=== PATIENT | female | born 1965 | race Caucasian/White ===

== ENCOUNTER → 2016-07-21 | Outpatient (CLI) | payer BC ==
[~2016-07-21] MED LIST: ACET-1256 PO; BCPILLS PO
== END | disposition home or self-care (01) ==
LOC: C.PAPS 07:56
PROVIDERS: ATTEND Physician Assistant
DX: Z01.419 Encounter for gynecological examination (general) (routine) without abnormal findings (principal)

== ENCOUNTER → 2017-05-24 | Outpatient (CLI) | payer BC, OTHER | END | disposition home or self-care (01) | LOC: C.RDSM 13:41 | PROVIDERS: ATTEND Family Medicine Sports Medicine | DX: M79.675 Pain in left toe(s) (principal) ==

== ENCOUNTER → 2017-06-28 | Outpatient (CLI) | payer OTHER | END | disposition home or self-care (01) | LOC: C.RDSM 16:20 | PROVIDERS: ATTEND Family Medicine Sports Medicine | DX: M54.5 Low back pain (principal) ==

== ENCOUNTER → 2017-09-22 | Outpatient (CLI) | payer OTHER ==
[2017-09-22 17:54] LABS: BASO % 1.1 %; BASO ABS # 0.07 K/uL (0-0.2); EOS % 2.6 %; EOS ABS # 0.17 K/uL (0-0.5); HEMATOCRIT 34.5 % (37-47); HEMOGLOBIN 11.6 g/dL (12.0-16.0); IG# 0.02 K/uL (0.00-0.02); LYMPH % 37.7 %; LYMPH ABS # 2.46 K/uL (1.2-3.4); MEAN CELL VOLUME 96.1 fL (80-100); MEAN CORPUSCULAR HEMOGLOBIN 32.3 pg (25-34); MEAN CORPUSCULAR HGB CONC 33.6 g/dl (32-36); MEAN PLATELET VOLUME 9.8 fL (7.4-10.4); MONO % 7.2 %; MONO ABS # 0.47 K/uL (0.11-0.59); NEUT % 51.1 %; NEUT ABS # 3.34 K/uL (1.4-6.5); PLATELET COUNT 313 K/uL (130-400); RED CELL DISTRIBUTION WIDTH CV 12.2 % (11.5-14.5); RED CELL DISTRIBUTION WIDTH SD 43.1 fL (36.4-46.3); WHITE BLOOD COUNT 6.53 K/uL (4.8-10.8)
[2017-09-22 18:49] LABS: ALBUMIN 3.4 gm/dl (3.4-5.0); ALKALINE PHOSPHATASE 65 U/L (45-117); ALT/SGPT 20 U/L (12-78); AST/SGOT 19 U/L (15-37); BLOOD UREA NITROGEN 10 mg/dl (7-18); CALCIUM 9.3 mg/dl (8.5-10.1); CARBON DIOXIDE 29 mmol/L (21-32); CREATININE 0.66 mg/dl (0.60-1.20); GLUCOSE 84 mg/dl (70-99); POTASSIUM 3.7 mmol/L (3.5-5.1); SODIUM 137 mmol/L (136-145); TOTAL PROTEIN 7.7 gm/dl (6.4-8.2)
--- NOTE | 2017-09-22 19:09 | DIAGNOSTIC IMAGING REPORT ---
ABDOMEN AND PELVIS CT WITH ORAL CONTRAST CT DOSE: 255.04 mGy.cm HISTORY: Generalized abdominal pain. TECHNIQUE: Multiaxial CT images of the abdomen and pelvis were performed following the use of oral contrast. A dose lowering technique was utilized adhering to the principles of ALARA. COMPARISON STUDY: None. FINDINGS: There is a 4 mm indeterminate pulmonary nodule within the left lower lobe on image 31. No pneumoperitoneum. No pneumatosis. No fractures within the visualized osseous structures. There is an 8 mm hypodense lesion within the right hepatic lobe. This is incompletely characterize on this noncontrast study but favors a cyst. The unenhanced gallbladder, spleen, adrenal glands, and kidneys are unremarkable. No renal stones. No hydronephrosis. 1 cm calcification at the splenic tail. No retroperitoneal lymphadenopathy. There is a duplicated IVC. The bladder, uterus, bilateral adnexa are unremarkable. Normal appendix. No cervical bowel obstruction. Focal thickening within the mid sigmoid colon with pericolonic fat stranding. There are few diverticula at this location. Therefore, this is consistent with acute diverticulitis. No perforation or abscess identified at this time. IMPRESSION: 1. Acute sigmoid diverticulitis. No perforation or abscess. 2. No evidence for bowel obstruction. 3. Normal appendix. 4. A 4 mm indeterminate pulmonary nodule within the left lower lobe. Please refer to the chart below for recommended follow-up. Please refer to below summary of Fleischner criteria recommendations for follow-up of incidental CT nodules (Rohit Hernandez, Guidelines for management of small pulmonary nodules detected on CT scans: A statement from the Fleischner Society, Radiology 237: [phone].) SOLID NODULES Solitary nodule size: <6 mm * Low risk patients: no follow-up needed * high risk patients: optional CT at 12 months Solitary nodule size: 6-8 mm * Low risk patients: follow-up at 6-12 months, then consider further follow-up at 18-24 months * high risk patients: initial follow-up CT at 6-12 months and then at 18-24 months if no change Solitary nodule size: >8 mm * either low or high risk patients - consider follow-up CT at 3 months, and/or CT-PET, and/or biopsy Multiple nodules size: <6 mm * Low risk patients: no routine follow-up * high risk patients: optional CT at 12 months Multiple nodules size: 6-8 mm * Low risk patients: follow-up at 3-6 months, then consider further follow-up at 18-24 months * high risk patients: follow-up at 3-6 months, then at 18-24 months if no change Multiple nodules size: >8 mm * Low risk patients: follow-up at 3-6 months, then consider further follow-up at 18-24 months * high risk patients: follow-up at 3-6 months, then at 18-24 months if no change Note: newly detected indeterminate nodule in persons 35 years of age or older. * Low risk patients: minimal or absent history of smoking and/or other known risk factors * high risk patients: history of smoking or of other known risk factors (e.g. first degree relative with lung cancer, or exposure to asbestos, radon, uranium) * if a nodule up to 8 mm is partly solid or is ground glass further follow-up is required after 24 months to exclude possible slow growing adenocarcinoma ([facility]) SUBSOLID NODULES Solitary pure ground-glass nodule * nodule size <6 mm - no CT follow-up required * nodule size >=6 mm - follow-up CT at 6-12 months, then every 2 years until 5 years Solitary part-solid nodule * nodule size <6 mm - no CT follow-up required * nodule size >=6 mm - follow-up CT at 3-6 months. If unchanged, and solid component remains <6 mm, then annual follow-up for 5 years Multiple subsolid nodules * nodule size <6 mm - follow-up CT at 3-6 months, consider further follow-up at 2 and 4 years if stable * nodule size >=6 mm - follow-up CT at 3-6 months, subsequent management based on the most suspicious nodule(s) Electronically signed by: Goran Kelly M.D. 09/22/2017 7:08 PM Dictated Date/Time: 09/22/2017 6:58 PM
== END | disposition home or self-care (01) ==
LOC: C.CTS 16:40
PROVIDERS: ATTEND Family Medicine
DX: K57.32 Diverticulitis of large intestine without perforation or abscess without bleeding (principal); R91.1 Solitary pulmonary nodule; Z88.2 Allergy status to sulfonamides; Z91.018 Allergy to other foods; Z91.048 Other nonmedicinal substance allergy status

== ENCOUNTER → 2017-10-22 | Outpatient (CLI) | payer OTHER ==
--- NOTE | 2017-10-22 07:30 | DIAGNOSTIC IMAGING REPORT ---
ULTRASOUND RIGHT UPPER QUADRANT ABDOMEN CLINICAL HISTORY: Follow-up liver lesion. COMPARISON STUDY: Abdominal CT dated 09/22/2017. TECHNIQUE: Real-time, grayscale, and color flow sonography of the right upper quadrant of the abdomen was performed. Images are reviewed in the transverse and longitudinal planes. FINDINGS: Liver: The liver is normal in size and echotexture. There is no intrahepatic biliary ductal dilatation. The main portal vein is patent. An 8 mm cyst is noted in the right lobe. Gallbladder: Small gallbladder polyps measure up to 7 mm. The largest polyp showed internal flow on color imaging. There is trace biliary sludge. No gallstones are identified. There is no gallbladder wall thickening or pericholecystic fluid. A sonographic Alva's sign is reportedly absent. The common bile duct measures up to 0.7 cm in diameter. Pancreas: Visualized portions of the pancreatic head and body are normal in appearance. The splenic vein is patent. Right kidney: Survey images of the right kidney demonstrate normal size and echotexture. There is no hydronephrosis. Ascites: None. IMPRESSION: 1. No acute sonographic abnormality is identified in the right upper quadrant. 2. Trace biliary sludge is noted. No shadowing gallstones are seen. 3. There are several gallbladder polyps which measure up to 7 mm. The largest polyp demonstrated internal flow on color imaging and a six-month follow-up is recommended for reassessment. 4. An 8 mm cyst is incidentally noted in the right lobe of the liver. Electronically signed by: Chris Childress M.D. 10/22/2017 7:28 AM Dictated Date/Time: 10/22/2017 7:26 AM
--- NOTE | 2017-10-22 07:39 | DIAGNOSTIC IMAGING REPORT ---
PELVIS NO IV/ORAL CONT (CT) CLINICAL HISTORY: 52 years-old Female presenting with DIVERTICULITIS LOW ABD PAIN. TECHNIQUE: Multidetector CT of the pelvis was performed without the use of intravenous contrast. IV contrast: None. A dose lowering technique was used consistent with the principles of ALARA (as low as reasonably achievable). COMPARISON: 09/22/2017. CT DOSE (mGy.cm): The estimated cumulative dose is 260.40 mGy.cm. FINDINGS: Program Mgr topogram: Unremarkable. Limited diverticulosis of the sigmoid colon. No colonic wall thickening. Mild stool burden throughout the visualized portion of the colon. No bowel obstruction is grossly apparent. Evaluation is limited bilaterally of oral and intravenous contrast. The appendix is normal. No free fluid or gas. Bladder normal. Pelvic organs within normal limits allowing for noncontrast technique. Normal noncontrast appearance of the vasculature. No gross lymphadenopathy in the pelvis allowing for noncontrast technique. Abdominal wall normal. Osseous structures with mild degenerative changes in the lower lumbar spine. IMPRESSION: 1. Of evaluation significantly limited by lack of oral and intravenous contrast. Allowing for this, Limited diverticulosis of the sigmoid colon. No evidence of diverticulitis. No convincing evidence of acute intrapelvic pathology. Electronically signed by: Lenard Edwards M.D. 10/22/2017 7:37 AM Dictated Date/Time: 10/22/2017 7:31 AM
== END | disposition home or self-care (01) ==
LOC: C.CTS 06:36
PROVIDERS: ATTEND Student in an Organized Health Care Education/Training Program
DX: K57.92 Diverticulitis of intestine, part unspecified, without perforation or abscess without bleeding (principal); K76.89 Other specified diseases of liver